=== PATIENT | male | born 1985 | race Two or more races ===

== ENCOUNTER 2018-04-30 08:54 | Emergency (ER) | payer SELFPAY ==
--- NOTE | 2018-04-30 10:14 | EDM.PDOC ---
ED HPI GENERAL MEDICAL PROBLEM - General Chief Complaint: Lower Extremity Injury/Pain Stated Complaint: RT ANKLE INJURY Time Seen by Provider: 04/30/18 09:07 Source of Information: Reports: Patient History Limitations: Reports: No Limitations - History of Present Illness INITIAL COMMENTS - FREE TEXT/NARRATIVE: The patient presents with right ankle pain. 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 He heard a pop and had pain right away. He could walk on it but with a limp. He denies any other injury. 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 Right Ankle Pain Score (Numeric/FACES): 5 - Related Data Allergies Allergy/AdvReac Type Severity Reaction Status Date / Time No Known Allergies Allergy Verified 04/30/18 09:02 Home Meds: Home Meds Ibuprofen [Motrin] 800 mg PO ASDIRECTED PRN 04/30/18 [History] Past Medical History Endocrine/Metabolic History: Reports: Obesity/BMI 30+ Social & Family History - Family History Family Medical History: Noncontributory - Tobacco Use Smoking Status *Q: Current Every Day Smoker Years of Tobacco use: 20 Packs/Tins Daily: 1 - Caffeine Use Caffeine Use: Reports: Coffee, Energy Drinks, Soda, Tea - Recreational Drug Use Recreational Drug Use: No Review of Systems - Review of Systems Review Of Systems: See Below Constitutional: Reports: No Symptoms Eyes: Reports: No Symptoms Ears: Reports: No Symptoms Nose: Reports: No Symptoms Mouth/Throat: Reports: No Symptoms Respiratory: Reports: No Symptoms Cardiovascular: Reports: No Symptoms GI/Abdominal: Reports: No Symptoms Genitourinary: Reports: No Symptoms Musculoskeletal: Reports: Other (Right ankle pain) ED EXAM, GENERAL - Physical Exam Exam: See Below Exam Limited By: No Limitations General Appearance: Alert, No Apparent Distress Ears: Normal External Exam Nose: Normal Inspection Head: Atraumatic, Normocephalic Neck: Normal Inspection Respiratory/Chest: No Respiratory Distress Extremities: Other (Mild swelling to the lateral malleolus with pain upon palpation. Good sensation and pulses distally.) Course - Vital Signs Last Recorded V/S: Last Vital Signs Temp 97.6 F 04/30/18 09:06 Pulse 79 04/30/18 09:06 Resp 16 04/30/18 09:06 BP 139/76 04/30/18 09:06 Pulse Ox 97 04/30/18 09:06 - Orders/Labs/Meds Orders: Active Orders 24 hr Category Date Time Status Ankle Min 3V Rt [CR] Stat Exams 04/30/18 09:17 Taken - Re-Assessments/Exams Free Text/Narrative Re-Assessment/Exam: 04/30/18 10:11 His x-ray shows no acute injury. I will get him in a stirrup splint and some crutches. Departure - Departure Time of Disposition: 10:15 Disposition: Home, Self-Care 01 Condition: Good Clinical Impression: Right ankle sprain Qualifiers: Encounter type: initial encounter Involved ligament of ankle: unspecified ligament Qualified Code(s): S93.401A - Sprain of unspecified ligament of right ankle, initial encounter - Discharge Information *PRESCRIPTION DRUG MONITORING PROGRAM REVIEWED*: No *COPY OF PRESCRIPTION DRUG MONITORING REPORT IN PATIENT SIMRAN: No Referrals: PCP,None [Primary Care Provider] - Pratik Valencia MD [Physician] - 2 Weeks Forms: ED Department Discharge, ED Return to Work/School Form Additional Instructions: Take motrin or tylenol for the pain. Ice your ankle for 15 minutes 3 times per day for 2 days. Try to elevate your ankle above your heart as much as you can for 2 days to control the swelling. Follow up with Dr Valencia in a couple weeks for your son and if your ankle does not feel better. Please return if you are worse. - My Orders Last 24 Hours: My Active Orders 04/30/18 09:17 Ankle Min 3V Rt [CR] Stat - Assessment/Plan Last 24 Hours: My Active Orders 04/30/18 09:17 Ankle Min 3V Rt [CR] Stat
--- NOTE | 2018-04-30 10:15 | CR ---
Right ankle: Four views of the right ankle were obtained. Bony density is noted off the inferior medial malleolus compatible with old avulsion fracture. Minimal plantar spur is noted. Ankle mortise is symmetric. Mild soft tissue swelling is present. No acute bony abnormality is appreciated. Impression: 1. Findings as noted above. No acute bony abnormality is identified. Diagnostic code #2
== END 2018-04-30 10:25 | disposition home or self-care (01) ==
LOC: JD.ED 08:54
DX: S93.401A Sprain of unspecified ligament of right ankle, initial encounter (principal); F17.210 Nicotine dependence, cigarettes, uncomplicated; X50.9XXA Other and unspecified overexertion or strenuous movements or postures, initial encounter
CPT/HCPCS: 73610-26-RT; 73610-RT; 99283

== ENCOUNTER 2020-09-05 08:21 | Emergency (ER) | payer SELFPAY ==
--- NOTE | 2020-09-05 08:45 | EDM.PDOC ---
ED HPI GENERAL MEDICAL PROBLEM - General Chief Complaint: ENT Problem Stated Complaint: throat pain Time Seen by Provider: 09/05/20 08:26 Source of Information: Reports: Patient History Limitations: Reports: No Limitations, Other (Vital signs in the emergency department temp 98.2, pulse 67, respiratory rate 18, blood pressure 140/71, pulse ox 97% on room air) - History of Present Illness INITIAL COMMENTS - FREE TEXT/NARRATIVE: 35-year-old male presents to the emergency department with complaints of sore throat pain. Patient states that this started in the middle the night last night and woke him from sleep. He states its mostly in the right tonsillar area. He denies any ear pain associated with this or congestion. He states that the burning pain. When he woke he did admit to having emesis x2. Denies any fever or chills, nausea or vomiting, diarrhea, or general flulike symptoms. Onset: Gradual Throat Pain Score (Numeric/FACES): 5 - Related Data Allergies Allergy/AdvReac Type Severity Reaction Status Date / Time No Known Allergies Allergy Verified 04/30/18 09:02 Home Meds: Home Meds Ibuprofen [Motrin] 800 mg PO ASDIRECTED PRN 04/30/18 [History] Amoxicillin/Potassium Clav [Augmentin 500-125 Tablet] 1 each PO BID #14 tablet 0 09/05/20 [Rx] Past Medical History Endocrine/Metabolic History: Reports: Obesity/BMI 30+ Social & Family History - Family History Family Medical History: No Pertinent Family History - Tobacco Use Tobacco Use Status *Q: Never Tobacco User - Caffeine Use Caffeine Use: Reports: Coffee, Energy Drinks - Recreational Drug Use Recreational Drug Use: No ED ROS ENT - Review of Systems Review Of Systems: See Below Constitutional: Reports: No Symptoms. Denies: Fever, Chills HEENT: Reports: Throat Pain. Denies: Ear Pain Respiratory: Reports: No Symptoms. Denies: Cough, Sputum Cardiovascular: Reports: No Symptoms Endocrine: Reports: No Symptoms GI/Abdominal: Reports: Hematemesis (X1), Nausea, Vomiting. Denies: Abdominal Pain : Reports: No Symptoms Musculoskeletal: Reports: No Symptoms Skin: Reports: No Symptoms Neurological: Reports: No Symptoms Psychiatric: Reports: No Symptoms Hematologic/Lymphatic: Reports: No Symptoms Immunologic: Reports: No Symptoms ED EXAM, ENT - Physical Exam Exam: See Below Exam Limited By: No Limitations General Appearance: Alert, WD/WN, No Apparent Distress Eye Exam: Bilateral Eye: PERRL Ears: Normal External Exam Nose: Normal Inspection Mouth/Throat: Normal Inspection, Normal Lips, Pharyngeal Erythema, Throat Pain, Tonsillar Erythema, Tonsillar Exudates (Left). No: Peritonsillar Mass, Throat Swelling, Tonsillar Swelling Head: Atraumatic, Normocephalic Neck: Normal Inspection, Supple, Full Range of Motion, Lymphadenopathy (R) (tonsillar) Respiratory/Chest: No Respiratory Distress, Lungs Clear, Normal Breath Sounds, No Accessory Muscle Use, Chest Non-Tender Cardiovascular: Normal Peripheral Pulses, Regular Rate, Rhythm, No Edema, No Murmur GI/Abdominal: Normal Bowel Sounds, Soft, Non-Tender, No Distention (Male) Exam: Deferred Rectal (Males) Exam: Deferred Back: Normal Inspection, Full Range of Motion Extremities: Normal Inspection, Normal Range of Motion, Non-Tender, No Pedal Edema, Normal Capillary Refill Neurological: Alert, Oriented, Normal Cognition Psychiatric: Normal Affect, Normal Mood Skin: Warm, Dry, Intact, Normal Color, No Rash Lymphatic: Adenopathy (right tonsillar) Course - Vital Signs Text/Narrative:: 35-year-old male presents the emergency department complaints of sore throat pain. Localized in the right tonsillar region. Denies fever chills. Did admit to having emesis x2 in the middle of the night. Upon assessment patient's throat is erythematous. Tonsils are not edematous however there is a small amount of exudate noted to the left tonsil. Patient does have tenderness to right tonsillar lymph node. No anterior or posterior cervical lymph node swelling. Patient will be discharged home with a prescription of Augmentin 500 mg twice daily for the next 7 days. Last Recorded V/S: Last Vital Signs Temp 98.2 F 09/05/20 08:28 Pulse 67 09/05/20 08:28 Resp 18 09/05/20 08:28 BP 140/71 09/05/20 08:28 Pulse Ox 97 09/05/20 08:28 - Orders/Labs/Meds Orders: Active Orders 24 hr Category Date Time Status STREP A BY PCR [MOLEC] Stat Lab 09/05/20 08:40 Received Departure - Departure Time of Disposition: 08:51 Disposition: Home, Self-Care 01 Condition: Good Clinical Impression: Pharyngitis Qualifiers: Pharyngitis/tonsillitis etiology: unspecified etiology Qualified Code(s): J02.9 - Acute pharyngitis, unspecified - Discharge Information Prescriptions: Amoxicillin/Potassium Clav [Augmentin 500-125 Tablet] 1 each PO BID #14 tablet Referrals: PCP,Not In Area [Primary Care Provider] - Forms: ED Department Discharge Additional Instructions: You were seen in the emergency department complaints of sore throat pain that started last evening. You denied fever or chills associated with this however you did have 2 episodes of emesis 1 which had a small amount of blood noted. This is likely due to your chewing tobacco causing irritation in your stomach lining. Strongly recommend you stop chewing. Increase your p.o. fluid intake. I will prescribe Augmentin 500 mg twice daily for the next 7 days. Please take this medication until gone. You can also take Tylenol 650 mg every 4 hours as needed for the discomfort or ibuprofen 600 mg every 6 hours as needed for the discomfort. Should your condition worsen or change please return to the emergency department Sepsis Event Note (ED) - Evaluation Sepsis Screening Result: No Definite Risk - Focused Exam Vital Signs: Vital Signs Temp Pulse Resp BP Pulse Ox 09/05/20 08:28 98.2 F 67 18 140/71 97 - My Orders Last 24 Hours: My Active Orders 09/05/20 08:40 STREP A BY PCR [MOLEC] Stat - Assessment/Plan Last 24 Hours: My Active Orders 09/05/20 08:40 STREP A BY PCR [MOLEC] Stat
== END 2020-09-05 09:00 | disposition home or self-care (01) ==
LOC: JD.ED 08:21
DX: J02.9 Acute pharyngitis, unspecified (principal); E66.9 Obesity, unspecified; Z68.42 Body mass index [BMI] 45.0-49.9, adult
CPT/HCPCS: 87651-QW; 99283

== ENCOUNTER 2021-07-07 12:08 | Emergency (ER) | payer SELFPAY ==
--- NOTE | 2021-07-07 13:07 | EDM.PDOC ---
ED HPI GENERAL MEDICAL PROBLEM - General Chief Complaint: Lower Extremity Injury/Pain Stated Complaint: FOOT PAINS Time Seen by Provider: 07/07/21 13:06 Source of Information: Reports: Patient History Limitations: Reports: No Limitations - History of Present Illness INITIAL COMMENTS - FREE TEXT/NARRATIVE: Patient 36-year-old male with a history of obesity presenting with chief complaint of left heel and right middle toe pain. Duration of symptoms is 1.5 months. No recent injuries. No fevers. Interventions performed prior to arrival include Tylenol. Mild relief. 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 No previous evaluation for the symptoms. Left Foot Pain Score (Numeric/FACES): 6 - Related Data Allergies Allergy/AdvReac Type Severity Reaction Status Date / Time No Known Allergies Allergy Verified 07/07/21 12:21 Home Meds: Home Meds lisinopriL [Lisinopril] 10 mg PO DAILY 07/07/21 [History] Past Medical History Cardiovascular History: Reports: Hypertension Respiratory History: Reports: SOB Other Respiratory History: not Dx'd. Gastrointestinal History: Reports: GERD Endocrine/Metabolic History: Reports: Obesity/BMI 30+ - Infectious Disease History Infectious Disease History: Reports: Chicken Pox, Measles Social & Family History - Family History Family Medical History: No Pertinent Family History - Caffeine Use Caffeine Use: Reports: Coffee, Energy Drinks, Soda - Recreational Drug Use Recreational Drug Use: No Review of Systems - Review of Systems Review Of Systems: See Below Constitutional: Denies: Fever Musculoskeletal: Denies: Leg Pain Skin: Denies: Rash, Change in Color Neurological: Denies: Numbness, Paresthesia ED EXAM, GENERAL - Physical Exam Exam: See Below Free Text/Narrative:: I have reviewed the triage vital signs Const: Well nourished, well developed, appears stated age Eyes: no conjunctival injection HENT: No signs of trauma or swelling, Neck supple without meningismus CV: Regular Rate Rhythm, Warm, well-perfused extremities RESP: Unlabored respiratory effort MSK: No areas of tenderness to palpation of either foot. No gross swelling appreciated. No gross deformities appreciated Skin: Warm, dry. 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 Sensation and motor function of extremities grossly intact. Psych: Appropriate mood and affect. Course - Vital Signs Last Recorded V/S: Last Vital Signs Temp 36.5 C 07/07/21 12:10 Pulse 78 07/07/21 12:10 Resp 16 07/07/21 12:10 BP 142/76 H 07/07/21 12:10 Pulse Ox 96 07/07/21 12:10 Departure - Departure Time of Disposition: 13:56 Disposition: Admitted As Inpatient 64 Clinical Impression: Plantar fasciitis of left foot - Discharge Information Instructions: Plantar Fasciitis Referrals: PCP,Not In Area [Primary Care Provider] - Forms: ED Department Discharge Additional Instructions: Use ibuprofen and/or Tylenol every 6-8 hours as needed. Please follow-up with podiatry in the next 1 week. Return to the emergency room for worsening symptoms or any other emergent concerns. Sepsis Event Note (ED) - Evaluation Sepsis Screening Result: No Definite Risk - Focused Exam Vital Signs: Vital Signs Temp Pulse Resp BP Pulse Ox 07/07/21 12:10 36.5 C 78 16 142/76 H 96 - Assessment/Plan Assessment:: Patient is 36-year-old male presenting with signs and symptoms consistent with plantar fasciitis. X-rays unremarkable for acute injury. Patient educated on conservative management. Discharged in stable condition.
--- NOTE | 2021-07-07 14:36 | CR ---
Bilateral feet: 4 views of both feet were obtained. Comparison: No previous imaging of the feet is available. Right side: Plantar spur is noted. Minimal spur is noted at the attachment of the Achilles tendon to the calcaneus. No fracture, dislocation or other bony abnormality is appreciated. Left side: Small plantar spur is noted. Small spur is noted at the attachment of the Achilles tendon to the calcaneus. No fracture, dislocation or other bony abnormality is seen. Impression: 1. Calcaneal spurs on both sides. 2. Bilateral foot exam is otherwise unremarkable. Diagnostic code #2
== END 2021-07-07 14:38 | disposition critical access hospital (66) ==
LOC: JD.ED 12:08
DX: M72.2 Plantar fascial fibromatosis (principal); I10 Essential (primary) hypertension; E66.9 Obesity, unspecified; Z68.43 Body mass index [BMI] 50.0-59.9, adult; Z79.899 Other long term (current) drug therapy
CPT/HCPCS: 736302650; 73630-50; 99283

== ENCOUNTER 2022-11-29 12:40 | Emergency (ER) | payer BC ==
[2022-11-29 14:26] LABS: ESTIMATED GFR 98 mL/min (>60)
[2022-11-29 14:58] LABS: CORONAVIRUS COVID-19 NAA NEGATIVE (NEGATIVE)
== END 2022-11-29 15:35 | disposition home or self-care (01) ==
LOC: JD.ED 12:40
DX: J40 Bronchitis, not specified as acute or chronic (principal); I10 Essential (primary) hypertension; E66.9 Obesity, unspecified; Z68.43 Body mass index [BMI] 50.0-59.9, adult; Z79.899 Other long term (current) drug therapy; Z72.0 Tobacco use; Z20.822 Contact with and (suspected) exposure to COVID-19
CPT/HCPCS: 0241U; 36415; 71045; 80053; 85025; 86140; 87651; 99283; 99284